=== PATIENT | female | born 1995 | race Caucasian/White ===

== ENCOUNTER 2016-08-26 18:44 | Emergency (ER) | payer BC ==
[2016-08-26 19:59] VITALS: BP 129/70
--- NOTE | 2016-08-26 20:24 | UC ---
Throat Pain/Nasal [place] HPI - HPI Summary HPI Summary: fever and sore throat for 2 days - History of Current Complaint Chief Complaint: UCRespiratory Stated Complaint: SORE THROAT Time Seen by Provider: 08/26/16 20:21 Hx Obtained From: Patient Hx Last Menstrual Period: 07/15/16 ?: No Onset/Duration: Sudden Onset, Lasting Days Severity: Moderate Cough: Nonproductive Associated Signs & Symptoms: Positive: Dysphagia, Fever - Epiglottits Risk Factors Epiglottis Risk Factors: Negative - Allergies/Home Medications Allergies/Adverse Reactions: Allergies Allergy/AdvReac Type Severity Reaction Status Date / Time Amoxicillin Allergy Rash Verified 08/26/16 19:59 Sulfa Antibiotics Allergy Rash Verified 08/26/16 19:59 Home Medications: Home Medications GuaiFENesin DM* [Robitussin DM*] 10 ml PO Q4H PRN 08/26/16 [History Confirmed ] Ibuprofen TAB* [Motrin TAB* 800 MG] 800 mg PO TID 08/26/16 [History Confirmed ] Losartan TAB* [Cozaar TAB*] 50 mg PO QPM 08/26/16 [History Confirmed 08/26/16] Menthol (Mouth-Throat) [Cepacol Sore Throat] 10.6 mg MT ONCE 08/26/16 [History Confirmed 08/26/16] Norgestimate-Ethinyl Estradiol [Trinessa 0.18/0.215/0.25 mg-35 Mcg] 1 tab PO QPM 08/26/16 [History Confirmed 08/26/16] Propranolol TAB* [Inderal TAB*] 10 mg PO QPM 08/26/16 [History Confirmed ] buPROPion TAB* [Wellbutrin TAB*] 100 mg PO QPM 08/26/16 [History Confirmed 08/26] PMH/Surg Hx/FS Hx/Imm Hx Previously Healthy: Yes Cardiovascular History Of: Reports: Hypertension - Surgical History Surgical History: Yes Surgery Procedure, Year, and Place: gallbladder 12/2015 - Family History Known Family History: Negative: Cardiac Disease - Social History Alcohol Use: Rare Substance Use Type: None Smoking Status (MU): Never Smoked Tobacco Review of Systems Constitutional: Fever Skin: Negative Eyes: Negative ENT: Nasal Discharge Respiratory: Cough Cardiovascular: Negative Gastrointestinal: Negative Genitourinary: Negative Motor: Negative Neurovascular: Negative Musculoskeletal: Negative Neurological: Negative Psychological: Negative All Other Systems Reviewed And Are Negative: Yes Physical Exam Triage Information Reviewed: Yes Appearance: Ill-Appearing, Pain Distress, Obese Vital Signs: Initial Vital Signs Temp 100.4 F 08/26/16 19:52 Pulse 92 08/26/16 19:52 Resp 20 08/26/16 19:52 BP 129/70 08/26/16 19:52 Pulse Ox 100 08/26/16 19:52 Vital Signs Reviewed: Yes Eye Exam: Normal Eyes: Positive: Conjunctiva Clear ENT: Positive: Normal ENT inspection, Hearing grossly normal, Pharynx normal, TMs normal Dental Exam: Normal Neck exam: Normal Neck: Positive: Supple, Nontender, No Lymphadenopathy Respiratory Exam: Normal Respiratory: Positive: Chest non-tender, Lungs clear, Normal breath sounds Cardiovascular Exam: Normal Cardiovascular: Positive: RRR, No Murmur, Pulses Normal Abdominal Exam: Normal Abdomen Description: Positive: Nontender, No Organomegaly, Soft Bowel Sounds: Positive: Present Musculoskeletal Exam: Normal Musculoskeletal: Positive: Strength Intact, ROM Intact, No Edema Neurological Exam: Normal Neurological: Positive: Alert, Muscle Tone Normal Psychological Exam: Normal Skin Exam: Normal Throat Pain/Nasal Course/Dx - Course Course Of Treatment: hx obtained, exam performed, meds reviewed, rapid strep is positive, treated with keflex - Differential Dx/Diagnosis Differential Diagnosis/HQI/PQRI: Influenza, Laryngitis, Peritonsillar Abscess, Pharyngitis, Sinusitis Provider Diagnoses: strep pharyngitis Discharge - Discharge Plan Condition: Stable Disposition: HOME Prescriptions: Cephalexin CAP* [Keflex CAP*] 500 mg PO BID #20 cap Patient Education Materials: Strep Throat (ED) Referrals: Lucia Hsu MD [Primary Care Provider] - Additional Instructions: 1. take the medication as prescribed 2. Increase your fluid intake and get plenty of rest.
== END 2016-08-26 20:33 | disposition home or self-care (01) ==
LOC: UCCORT 18:44
DX: J02.0 Streptococcal pharyngitis (principal); Z88.1 Allergy status to other antibiotic agents; Z88.2 Allergy status to sulfonamides; I10 Essential (primary) hypertension; E66.9 Obesity, unspecified; Z90.49 Acquired absence of other specified parts of digestive tract
CPT/HCPCS: 87651; 99202; G0463

== ENCOUNTER 2018-05-09 15:05 | Emergency (ER) | payer BC ==
--- OUTSIDE RECORDS SUMMARY | 2018-05-09 16:29 | XMS REPORT | Continuity of Care Document ---
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 K/uL 2.1-8.0 Abs Lymphocytes 2.4 K/uL 0.8-5.5 Abs Monocytes 0.6 K/uL 0.1-1.0 Abs Eosinophils 0.2 K/uL 0.0-0.5 Abs Basophils 0.0 K/uL 0.0-0.3 Basic Metabolic Panel 12/12/2015 [facility] Glucose 97 mg /dL 74-106 (315)- - BUN 6 mg/dL Low 7-18 Creatinine 0.8 mg/dL 0.6-1.3 Glom Filtration Rate, Estimate >60 mL/min >60 If >60 mL/min >60 24 BUN/Creat 7.5 ratio Sodium 142 mmol/L 136-145 Potassium 3.6 mmol/L 3.5-5.1 Chloride 108 mmol/L High 98-107 Carbon Dioxide 27 mmol/L 21-32 Anion Gap 7 mEq/L Low 8-16 Calcium 8.4 mg/dL Low 8.5-10.1 Liver Function 12/12/2015 [facility] Total Protein 6.4 g/ dL 6.4-8.2 Tests (315)- - Albumin 3.0 g/dL Low 3.4-5.0 Globulin 3.4 g/dL 1.9-4.3 Alb/Glob 0.9 ratio Bilirubin,Total 0.7 mg/dL 0.2-1.0 Bilirubin,Direct 0.4 mg/dL High 0.0-0.2 Bilirubin,Indirect 0.3 mg/dL 0.0-0.9 Sgot/Ast 78 U/L High 15-37 SGPT/Alt 194 U/L High 12-78 Alkaline Phosphatase 88 U/L 45-117 Laboratory test 12/12/2015 [facility] Pathology See Note 25 finding (315)- - Specimen CBC 12/10/2015 [facility] White Blood 8.0 K/uL 3.1- 10. (315)- - Count 7 Red Blood Count 4.03 M/uL 3.90-5.40 Hemoglobin 11.3 gm/dL Low 11.6-15.8 Hematocrit 35.0 % Low 36.0-46.1 Mean Cell Volume 86.8 fl 80.9-99.0 Mean Corpuscular HGB 28.0 pg 25.9-32.7 Mean Corpuscular HGB Conc 32.3 g/dL 30.8-34.3 Platelet Count 276 K/uL 155-360 Red Cell Distri Width %CV 13.9 % 11.7-14.4 Mean Platelet Volume 9.2 fL 8.9-12.4 Liver Function 12/10/2015 [facility] Total Protein 6.2 g/ dL Low 6.4-8.2 Tests (315)- - Albumin 2.8 g/dL Low 3.4-5.0 Globulin 3.4 g/dL 1.9-4.3 Alb/Glob 0.8 ratio Bilirubin,Total 0.9 mg/dL 0.2-1.0 Bilirubin,Direct 0.5 mg/dL High 0.0-0.2 Bilirubin,Indirect 0.4 mg/dL 0.0-0.9 Sgot/Ast 133 U/L High 15-37 SGPT/Alt 226 U/L High 12-78 Alkaline Phosphatase 95 U/L 45-117 Basic Metabolic Panel 12/10/2015 [facility] Glucose 99 mg /dL 74-106 (315)- - BUN 7 mg/dL 7-18 Creatinine 0.8 mg/dL 0.6-1.3 Glom Filtration Rate, Estimate >60 mL/min >60 If >60 mL/min >60 26 BUN/Creat 8.7 ratio Sodium 141 mmol/L 136-145 Potassium 3.6 mmol/L 3.5-5.1 Chloride 109 mmol/L High 98-107 Carbon Dioxide 24 mmol/L 21-32 Anion Gap 8 mEq/L 8-16 Calcium 8.3 mg/dL Low 8.5-10.1 Comprehensive Metabolic 12/09/2015 [facility] Glucose 109 mg/dL High 74-106 Panel (315)- - BUN 8 mg/dL 7-18 Creatinine 0.8 mg/dL 0.6-1.3 Glom Filtration Rate, Estimate >60 mL/min >60 If >60 mL/min >60 27 BUN/Creat 10.0 ratio Sodium 139 mmol/L 136-145 Potassium 4.0 mmol/L 3.5-5.1 Chloride 108 mmol/L High 98-107 Carbon Dioxide 23 mmol/L 21-32 Anion Gap 8 mEq/L 8-16 Calcium 8.2 mg/dL Low 8.5-10.1 Total Protein 6.3 g/dL Low 6.4-8.2 Albumin 2.9 g/dL Low 3.4-5.0 Globulin 3.4 g/dL 1.9-4.3 Alb/Glob 0.9 ratio Bilirubin,Total 3.2 mg/dL High 0.2-1.0 Sgot/Ast 183 U/L High 15-37 SGPT/Alt 207 U/L High 12-78 Alkaline Phosphatase 96 U/L 45-117 CBC 12/09/2015 [facility] White Blood Count 6.3 K/uL 3.1-10.7 (315)- - Red Blood Count 4.21 M/uL 3.90-5.40 Hemoglobin 11.8 gm/dL 11.6-15.8 Hematocrit 36.4 % 36.0-46.1 Mean Cell Volume 86.5 fl 80.9-99.0 Mean Corpuscular HGB 28.0 pg 25.9-32.7 Mean Corpuscular HGB Conc 32.4 g/dL 30.8-34.3 Platelet Count 293 K/uL 155-360 Red Cell Distri Width %CV 13.9 % 11.7-14.4 Mean Platelet Volume 9.1 fL 8.9-12.4 Urine Screen 12/08/2015 [facility] Ua RFX Micro + See Note 28 (315)- - Culture II Urinalysis With 12/08/2015 [facility] Urine Color YELLOW Yellow Microscopic (315)- - Urine Clarity CLEAR Clear Urine Glucose - Dipstick NEGATIVE mg/dL Negative Urine Bilirubin - Dipstick MODERATE High Negative Urine Ketone NEGATIVE mg/dL Negative Urine Specific [place] 1.020 1.010-1.030 Urine Blood NEGATIVE Negative Urine PH 7.0 6.5-7.5 Urine Protein - Dipstick NEGATIVE mg/dL Negative Urine Urobilinogen - Dipstick 1.0 E.U./dL 0.2-1.0 Urine Nitrite - Dipstick NEGATIVE Negative Urine Leuk Esterase TRACE High Negative Urine RBC NONE SEEN rbc/hpf 0-2 Urine WBC 2-5 wbc/hpf 0-7 Urine Epithelial Cells FEW NONESEEN/lpf Urine Bacteria FEW NONESEEN Urine Amorph Sediment MODERATE Negative Comprehensive Metabolic 12/08/2015 [facility] Glucose 105 mg/dL 74-106 Panel (315)- - BUN 11 mg/dL 7-18 Creatinine 0.9 mg/dL 0.6-1.3 Glom Filtration Rate, Estimate >60 mL/min >60 If >60 mL/min >60 29 BUN/Creat 12.2 ratio Sodium 139 mmol/L 136-145 Potassium 3.7 mmol/L 3.5-5.1 Chloride 105 mmol/L 98-107 Carbon Dioxide 25 mmol/L 21-32 Anion Gap 9 mEq/L 8-16 Calcium 9.4 mg/dL 8.5-10.1 Total Protein 7.3 g/dL 6.4-8.2 Albumin 3.2 g/dL Low 3.4-5.0 Globulin 4.1 g/dL 1.9-4.3 Alb/Glob 0.8 ratio Bilirubin,Total 2.9 mg/dL High 0.2-1.0 Sgot/Ast 138 U/L High 15-37 SGPT/Alt 149 U/L High 12-78 Alkaline Phosphatase 95 U/L 45-117 Laboratory test 12/08/2015 [facility] Lipase 1174 U/L High 73-393 30 finding (315)- - HCG,Serum (Qualitative) NEGATIVE (Negative) 31 CBC W/Automated Diff 12/08/2015 [facility] White Blood 7.9 K/uL 3.1-10.7 (315)- - Count Red Blood Count 4.66 M/uL 3.90-5.40 Hemoglobin 12.9 gm/dL 11.6-15.8 Hematocrit 39.3 % 36.0-46.1 Mean Cell Volume 84.3 fl 80.9-99.0 Mean Corpuscular HGB 27.7 pg 25.9-32.7 Mean Corpuscular HGB Conc 32.8 g/dL 30.8-34.3 Platelet Count 313 K/uL 155-360 Red Cell Distri Width SD 41.1 fl 3-47 Red Cell Distri Width %CV 13.7 % 11.7-14.4 Mean Platelet Volume 9.0 fL 8.9-12.4 Neut% 62.6 % 40.4-72.8 Lymph % 30.5 % 17.0-46.1 [place] % 6.0 % 4.3-13.2 Eo% 0.6 % 0.0-6.6 Bas% 0.3 % 0.0-1.1 Neut# 4.92 K/uL 1.8-7.0 Lymph # 2.40 K/uL 1.8-7.0 [place] # 0.47 K/uL 0.3-0.9 Eos # 0.05 K/uL 0.0-0.5 Baso # 0.02 K/uL 0.0-0.1 Urine HCG 12/08/2015 [facility] Urine HCG NEGATIVE Negative 32 (Qualitative) (315)- - (Qualitative) Glycohemoglobin A1c 09/13/2015 [facility] Glycohemoglobin 5.7 % 4.2-6.3 33 (315)- - (A1c) eAG 117 mg/dL Laboratory test 09/13/2015 [facility] Thyroid Stim 0.63 uIU/mL 0.30-4.20 finding (315)- - Hormone CMP, Comp 09/13/2015 [facility] Glucose 92 mg/dL 74- 106 Metabolic Panel (315)- - BUN 11 mg/dL 7-18 Creatinine 0.8 mg/dL 0.6-1.3 Glom Filtration Rate, Estimate >60 mL/min >60 If >60 mL/min >60 34 BUN/Creat 13.7 ratio Sodium 140 mmol/L 136-145 Potassium 4.2 mmol/L 3.5-5.1 Chloride 105 mmol/L 98-107 Carbon Dioxide 26 mmol/L 21-32 Anion Gap 9 mEq/L 8-16 Calcium 8.7 mg/dL 8.5-10.1 Total Protein 7.1 g/dL 6.4-8.2 Albumin 3.1 g/dL Low 3.4-5.0 Globulin 4.0 g/dL 1.9-4.3 Alb/Glob 0.8 ratio Bilirubin,Total 0.5 mg/dL 0.2-1.0 Sgot/Ast 12 U/L Low 15-37 35 SGPT/Alt 25 U/L 12-78 Alkaline Phosphatase 60 U/L 45-117 CBC 09/13/2015 [facility] White Blood Count 8.8 K/uL 3.1-10.7 (315)- - Red Blood Count 4.53 M/uL 3.90-5.40 Hemoglobin 12.2 gm/dL 11.6-15.8 Hematocrit 38.6 % 36.0-46.1 Mean Cell Volume 85.2 fl 80.9-99.0 Mean Corpuscular HGB 26.9 pg 25.9-32.7 Mean Corpuscular HGB Conc 31.6 g/dL 30.8-34.3 Platelet Count 342 K/uL 155-360 Red Cell Distri Width %CV 13.5 % 11.7-14.4 Mean Platelet Volume 9.2 fL 8.9-12.4 BMP (Basic) 06/14/2015 [facility] Glucose 93 mg/dL 74- 106 (315)- - BUN 14 mg/dL 7-18 Creatinine 0.6 mg/dL 0.6-1.3 Glom Filtration Rate, Estimate >60 mL/min >60 If >60 mL/min >60 36 BUN/Creat 23.3 ratio Sodium 140 mmol/L 136-145 Potassium 4.3 mmol/L 3.5-5.1 Chloride 105 mmol/L 98-107 Carbon Dioxide 27 mmol/L 21-32 Anion Gap 8 mEq/L 8-16 Calcium 8.8 mg/dL 8.5-10.1 Glycohemoglobin A1c 06/14/2015 [facility] Glycohemoglobin 5.8 % 4.2-6.3 37 (315)- - (A1c) eAG 120 mg/dL Laboratory test 06/14/2015 [facility] Thyroid Stim 1.13 uIU/mL 0.36-3.74 finding (315)- - Hormone Basic Metabolic 10/02/2014 [facility] Glucose 96 mg/dL 74-106 Panel (315)- - BUN 11 mg/dL 7-18 Creatinine 0.7 mg/dL 0.6-1.3 Glom Filtration Rate, Estimate >60 mL/min >60 If >60 mL/min >60 38 BUN/Creat 15.7 ratio Sodium 139 mmol/L 136-145 Potassium 4.4 mmol/L 3.5-5.1 Chloride 107 mmol/L 98-107 Carbon Dioxide 23 mmol/L 21-32 Anion Gap 9 mEq/L 8-16 Calcium 8.8 mg/dL 8.5-10.1 Laboratory test 10/02/2014 [facility] Thyroid Stim 1.97 0.36-3.74 finding (315)- - Hormone uIU/mL Glycohemoglobin A1c 10/02/2014 [facility] Glycohemoglobin 5.6 % 4.2-6.3 39 (315)- - (A1c) eAG 114 mg/dL CBC 10/02/2014 [facility] White Blood Count 6.4 K/uL 3.1-10.7 (315)- - Red Blood Count 4.11 M/uL 3.90-5.40 Hemoglobin 11.2 gm/dL Low 11.6-15.8 Hematocrit 35.2 % Low 36.0-46.1 Mean Cell Volume 85.6 fl 80.9-99.0 Mean Corpuscular HGB 27.3 pg 25.9-32.7 Mean Corpuscular HGB Conc 31.8 g/dL 30.8-34.3 Platelet Count 290 K/uL 155-360 Red Cell Distri Width %CV 14.2 % 11.7-14.4 Mean Platelet Volume 9.4 fL 8.9-12.4 Laboratory test finding 10/16/2013 N2N/CCD Import % A1c 5.5 % 4.1-6.5 % Baso. 0.9 % 0.0-2.0 % Eos. 1.3 % 0.0-4.0 % Lymph 36 % 20-44 % [place] 6.6 % 2.0-10.0 % [place] 56 % 50-70 Absolute Baso. 0.1 K/ul 0.0-0.3 Absolute Eos. 0.1 K/ul 0.0-0.5 Absolute Lymph. 2.9 K/ul 0.8-4.8 Absolute [place]. 0.5 K/ul 0.1-1.0 Absolute [place]. 4.50 K/ul 2.05-7.63 BUN 17.0 mg/dL 7.0-18.0 BUN/Creat Ratio 21.3 ratio High 12.0-20.0 Calcium 9.9 mg/dL 8.7-10.5 Chloride 107.0 mmol/L 98.0-107.0 Co2 25.0 mmol/L 22.0-30.0 Creatinine-Serum 0.8 mg/dL 0.7-1.2 Glucose 95.0 mg/dL 75.0-110.0 HCT 38.5 % 37.0-51.0 HGB 12.7 Gm/dl 12.0-16.0 MCH 28.1 pg 26.0-32.0 MCHC 33.0 g/dL 31.0-36.0 MCV 85.0 Fl 80.0-97.0 MPV 5.8 fL Low 6.0-10.0 PLT 378 K/ul 140-440 Potasium 4.5 mmol/L 3.6-5.0 RBC 4.5 M/ul 4.2-6.3 RDW 13.0 % 11.5-14.5 Sodium 140.0 mmil/L 137.0-145.0 TSH 1.31 uIU/ml 0.50-6.00 Vitamin B12 409.0 pg/mL 200.0-900.0 Vitamin D 30.0 ng/mL 30.0-100.0 WBC 8.1 K/ul 4.1-10.9 eGFR 98.2 Laboratory test 07/03/2013 N2N/CCD Import Throat Culture See Note 40 finding Complete Laboratory test 01/22/2013 N2N/CCD Import % A1c 5.7 % 4.1-6.5 finding % Baso. 0.9 % 0.0-2.0 % Eos. 1.8 % 0.0-4.0 % Lymph 43 % 20-44 % [place] 5.9 % 2.0-10.0 % [place] 49 % Low 50-70 Absolute Baso. 0.1 K/ul 0.0-0.3 Absolute Eos. 0.2 K/ul 0.0-0.5 Absolute Lymph. 3.6 K/ul 0.8-4.8 Absolute [place]. 0.5 K/ul 0.1-1.0 Absolute [place]. 4.09 K/ul 2.05-7.63 BUN 13.0 mg/dL 7.0-18.0 BUN/Creat Ratio 16.3 ratio 12.0-20.0 Calcium 10.0 mg/dL 8.7-10.5 Chloride 106.0 mmol/L 98.0-107.0 Co2 24.0 mmol/L 22.0-30.0 Creatinine-Serum 0.8 mg/dL 0.7-1.2 Glucose 100.0 mg/dL 75.0-110.0 HCT 38.3 % 37.0-51.0 HGB 11.9 Gm/dl Low 12.0-16.0 MCH 27.1 pg 26.0-32.0 MCHC 31.0 g/dL 31.0-36.0 MCV 87.2 Fl 80.0-97.0 MPV 5.9 fL Low 6.0-10.0 PLT 404 K/ul 140-440 Potasium 4.0 mmol/L 3.6-5.0 RBC 4.4 M/ul 4.2-6.3 RDW 12.6 % 11.5-14.5 Sodium 140.0 mmil/L 137.0-145.0 TSH 1.58 uIU/ml 0.50-6.00 WBC 8.4 K/ul 4.1-10.9 eGFR 99.3 Hepatic Function Panel LFT 01/22/2013 N2N/CCD Import Albumin 4.4 g/dL 3.5-5.0 Alk. Phos. 76.0 U/L 30.0-126.0 Alt 21.0 U/L 9.0-52.0 Ast 18.0 U/L 14.0-36.0 Total Bilirubin 0.3 mg/dL 0.2-1.3 Total Protein 7.0 g/dL 6.3-8.2 Laboratory test finding 12/08/2012 N2N/CCD Import Anion Gap 14 mEq/L 8- 16 BUN 15 mg/dL 5-23 BUN/Creat 16.6 ratio Calcium 8.8 mg/dL 8.5-10.1 Carbon Dioxide 23 mEq/L 18-29 Chloride 106 mmol/L 98-107 Creatinine 0.9 mg/dL 0.5-1.4 Glom Filtration Rate, Estimate >60 mL/min >60 Glucose 89 mg/dL 76-115 Glycohemoglobin (A1c) 6.0 % 4.8-6.0 41 If >60 mL/min >60 42 Potassium 4.0 mmol/L 3.5-5.1 Sodium 139 mmol/L 136-145 eAG 126 mg/dL Laboratory test finding 05/06/2012 N2N/CCD Import Anion Gap 10 mEq/L 8- 16 BUN 14 mg/dL 5-23 BUN/Creat 17.5 ratio Calcium 9.0 mg/dL 8.5-10.1 Carbon Dioxide 26 mEq/L 18-29 Chloride 104 mmol/L 98-107 Creatinine 0.8 mg/dL 0.5-1.4 Glom Filtration Rate, Estimate >60 mL/min >60 Glucose 107 mg/dL 76-115 Glycohemoglobin (A1c) 5.9 % 4.8-6.0 43 If >60 mL/min >60 44 Potassium 4.0 mmol/L 3.5-5.1 Sodium 136 mmol/L 136-145 eAG 123 mg/dL Laboratory test finding 12/14/2011 N2N/CCD Import Alb/Glob 1.2 ratio Albumin 4.0 g/dL 3.5-5.0 Alkaline Phosphatase 77 U/L 50-136 Anion Gap 14 mEq/L 8-16 Anti Strep O Screen Negative Iu/ml Negative BUN 11 mg/dL 5-23 BUN/Creat 15.7 ratio Bas% 0.2 % 0.0-1.1 Baso # 0.02 K/uL 0.0-0.1 Bilirubin,Total 0.4 mg/dL 0.2-1.2 Calcium 9.5 mg/dL 8.5-10.1 Carbon Dioxide 27 mEq/L 18-29 Chloride 103 mmol/L 98-107 Creatinine 0.7 mg/dL 0.5-1.4 Ebv AB Vca,Igg <0.2 0.0-0.8 45 Ebv AB Vca,Igm <0.2 0.0-0.8 46 Ebv Early Antigen AB, IgG <0.2 0.0-0.8 47 Ebv Interpretation See Note 48 Ebv Nuclear Antigen AB, Igg <0.2 0.0-0.8 49 Eo% 0.9 % 0.0-6.6 Eos # 0.09 K/uL 0.0-0.5 Globulin 3.4 g/dL 1.9-4.3 Glom Filtration Rate, Estimate >60 mL/min Glucose 121 mg/dL High 76-115 Hematocrit 40.1 % 36.0-46.0 Hemoglobin 13.4 gm/dL 12.0-16.0 If >60 mL/min Lymph # 2.98 K/uL 0.8-3.4 Lymph % 29.5 % 17.0-46.1 Mean Cell Volume 82.0 fl 77.0-95.0 Mean Corpuscular HGB 27.4 pg 25.0-30.0 Mean Corpuscular HGB Conc 33.4 g/dL 30.8-34.3 Mean Platelet Volume 9.6 fL 8.9-12.4 [place] # 0.54 K/uL 0.0-0.6 [place] % 5.4 % 4.3-13.2 Monoscreen (Heterophile) Negative Negative 50 Neut# 6.46 K/uL 1.0-7.0 Neut% 64.0 % 28.0-68.0 Platelet Count 411 K/uL High 155-360 Potassium 3.9 mmol/L 3.5-5.1 Red Blood Count 4.89 M/uL 4.10-5.10 Red Cell Distri Width %CV 13.8 % 11.7-14.4 Red Cell Distri Width SD 40.1 fl 3-47 SGPT/Alt 29 U/L Low 30-65 Sedimentation Rate 14 mm/hr 0-20 Sgot/Ast 14 U/L Low 16-40 Sodium 140 mmol/L 136-145 Thyroid Stim Hormone 1.08 uIU/mL 0.49-4.67 Total Protein 7.4 g/dL 6.3-8.0 White Blood Count 10.1 K/uL 4.5-13.5 Laboratory test finding 12/03/2011 N2N/CCD Import Anion Gap 13 mEq/L 8- 16 BUN 13 mg/dL 5-23 BUN/Creat 18.5 ratio Calcium 9.2 mg/dL 8.5-10.1 Carbon Dioxide 25 mEq/L 18-29 Chloride 105 mmol/L 98-107 Creatinine 0.7 mg/dL 0.5-1.4 Glom Filtration Rate, Estimate >60 mL/min Glucose 106 mg/dL 76-115 Glycohemoglobin (A1c) 6.1 % High 4.8-6.0 51 If >60 mL/min Potassium 4.2 mmol/L 3.5-5.1 Sodium 139 mmol/L 136-145 eAG 128 mg/dL Laboratory test finding 06/19/2011 N2N/CCD Import Anion Gap 12 mEq/L 8- 16 BUN 13 mg/dL 5-23 BUN/Creat 16.2 ratio Calcium 9.2 mg/dL 8.5-10.1 Carbon Dioxide 25 mEq/L 18-29 Chloride 107 mmol/L 98-107 Creatinine 0.8 mg/dL 0.5-1.4 Glom Filtration Rate, Estimate >60 mL/min Glucose 96 mg/dL 76-115 Glycohemoglobin (A1c) 5.7 % 4.8-6.0 52 If >60 mL/min Potassium 4.2 mmol/L 3.5-5.1 Sodium 140 mmol/L 136-145 eAG 117 mg/dL LDL Cholesterol Profile 03/06/2011 N2N/CCD Import Cholesterol 159 mg/dL 120-200 HDL Cholesterol 28 mg/dL Low 29-83 LDL-Cholesterol 101 mg/dL 62-185 Triglycerides 150 mg/dL 16-231 Laboratory test finding 03/06/2011 N2N/CCD Import Anion Gap 11 mEq/L 8- 16 BUN 11 mg/dL 5-23 BUN/Creat 12.2 ratio Calcium 9.7 mg/dL 8.5-10.1 Carbon Dioxide 25 mEq/L 18-29 Chloride 107 mmol/L 98-107 Cortisol,Am 11.47 g/dL 4.30-22.40 Creatinine 0.9 mg/dL 0.5-1.4 Glom Filtration Rate, Estimate >60 mL/min Glucose 89 mg/dL 76-115 Glycohemoglobin (A1c) 5.7 % 4.8-6.0 53 If >60 mL/min Potassium 4.4 mmol/L 3.5-5.1 SGPT/Alt 22 U/L Low 30-65 Sgot/Ast 13 U/L Low 16-40 Sodium 139 mmol/L 136-145 Thyroid Stim Hormone 1.34 uIU/mL 0.49-4.67 eAG 117 mg/dL Laboratory test finding 12/21/2010 N2N/CCD Import Anion Gap 19 mmol/L 10 -20 54 BUN 12 mg/dL 7-18 BUN/CR Ratio 17.5 Ratio 12-20 Calcium 9.7 mg/dL 8.7-10.5 Carbon Dioxide 26 mmol/L 22-30 Chloride 104 mmol/L 98-107 Creatinine, Serum 0.7 mg/dL 0.7-1.2 Glucose 96 mg/dL 65-105 Hemoglobin A1c 5.8 % 4.1-6.5 Potassium 4.7 mmol/L 3.6-5.0 Sodium 143 mmol/L 137-145 Laboratory test finding 07/23/2010 N2N/CCD Import Anion Gap 10 mEq/L 8- 16 BUN 13 mg/dL 5-23 BUN/Creat 16.2 Calcium 9.0 mg/dL 8.5-10.1 Carbon Dioxide 28 mEq/L 21-32 Chloride 103 mEq/L 98-107 Creatinine 0.8 mg/dL 0.5-1.4 Glom Filtration Rate, Estimate >60 mL/min Glucose 81 mg/dL 76-115 Glycohemoglobin (A1c) 5.6 % 4.8-6.0 55 If >60 mL/min Potassium 4.3 mEq/L 3.5-5.1 Sodium 137 mEq/L 136-145 eAG 114 mg/dL Laboratory test finding 03/14/2010 N2N/CCD Import Anion Gap 13 mEq/L 8- 16 BUN 16 mg/dL 5-23 BUN/Creat 20.0 Calcium 8.7 mg/dL 8.5-10.1 Carbon Dioxide 24 mEq/L 21-32 Chloride 106 mEq/L 98-107 Creatinine 0.8 mg/dL 0.5-1.4 FSH 3.6 mIU/mL 56 Glom Filtration Rate, Estimate >60 mL/min Glucose 95 mg/dL 76-115 Glycohemoglobin A1c 5.6 % 4.8-6.0 57 If >60 mL/min Insulin 41.9 uIU/mL High 0.0-24.9 58 Luteinizing Hormone 3.1 mIU/mL 59 Potassium 4.0 mEq/L 3.5-5.1 Sodium 139 mEq/L 136-145 Laboratory test finding 09/13/2009 N2N/CCD Import Alb/Glob 1.0 Albumin 3.7 g/dL 3.5-5.0 Alkaline Phosphatase 126 U/L 50-136 Anion Gap 11 mEq/L 8-16 BUN 12 mg/dL 5-23 BUN/Creat 17.1 Bas% 0.3 % 0.0-1.1 Baso # 0.0 K/uL 0.0-0.1 Bilirubin,Total 0.6 mg/dL 0.2-1.2 Calcium 9.1 mg/dL 8.5-10.1 Carbon Dioxide 26 mEq/L 21-32 Chloride 105 mEq/L 98-107 Cortisol,Random 8.7 NotEstab.ug/ Creatinine 0.7 mg/dL 0.5-1.4 Eo% 1.1 % 0.0-6.6 Eos # 0.1 K/uL 0.0-0.5 Globulin 3.8 gm/dL 1.9-4.3 Glom Filtration Rate, Estimate >60 mL/min Glucose 88 mg/dL 76-115 Hematocrit 38.1 % 36.0-46.0 Hemoglobin 12.4 gm/dL 12.0-16.0 If >60 mL/min Lymph # 2.8 K/uL 0.8-3.4 Lymph % 43.5 % 17.0-46.1 Mean Cell Volume 83.2 fl 77.0-95.0 Mean Corpuscular HGB 27.1 pg 25.0-30.0 Mean Corpuscular HGB Conc 32.5 g/dL 30.8-34.3 Mean Platelet Volume 9.0 fL 8.9-12.4 [place] # 0.4 K/uL 0.0-0.6 [place] % 6.1 % 4.3-13.2 Neut# 3.1 K/uL 1.0-7.0 Neut% 49.0 % 28.0-68.0 Platelet Count 372 K/uL High 155-360 Potassium 4.5 mEq/L 3.5-5.1 Red Blood Count 4.58 M/uL 4.10-5.10 Red Cell Distri Width %CV 13.1 % 11.7-14.4 Red Cell Distri Width SD 39 fl 3-47 SGPT/Alt 33 U/L 30-65 Sgot/Ast 17 U/L 16-40 Sodium 137 mEq/L 136-145 Thyroid Stim Hormone 1.49 uIU/mL 0.49-4.67 Total Protein 7.5 g/dL 6.3-8.0 White Blood Count 6.4 K/uL 4.5-13.5 LDL Cholesterol Profile 09/13/2009 N2N/CCD Import Cholesterol 154 mg/dL 120-200 HDL Cholesterol 35 mg/dL 32-96 LDL-Cholesterol 95 mg/dL 62-185 Triglycerides 122 mg/dL 0-210 Laboratory test 07/09/2008 N2N/CCD Import Culture Throat Normal Throat 60 finding FL <See Note> Laboratory test 12/19/2007 N2N/CCD Import Anion Gap 14 mEq/L 8-16 finding BUN 13 mg/dL 5-23 BUN/Creat 21.6 Bas% 0.4 % 0.0-1.1 Baso # 0.0 K/uL 0.0-0.1 Calcium 9.8 mg/dL 8.5-10.1 Carbon Dioxide 26 mEq/L 21-32 Chloride 102 mEq/L 98-107 Creatinine 0.6 mg/dL 0.5-1.4 Eo% 1.1 % 0.0-6.6 Eos # 0.1 K/uL 0.0-0.5 Glucose 106 mg/dL 76-115 Hematocrit 39.6 % 36.0-46.0 Hemoglobin 13.1 gm/dL 12.0-16.0 Lymph # 3.2 K/uL 0.8-3.4 Lymph % 37.9 % 17.0-46.1 Mean Cell Volume 82.3 fl 77.0-95.0 Mean Corpuscular HGB 27.2 pg 25.0-30.0 Mean Corpuscular HGB Conc 33.1 g/dL 30.8-34.3 Mean Platelet Volume 8.9 fL 8.9-12.4 [place] # 0.7 K/uL High 0.0-0.6 [place] % 7.7 % 4.3-13.2 Neut# 4.5 K/uL 1.0-7.0 Neut% 52.9 % 28.0-68.0 Platelet Count 372 K/uL High 155-360 Potassium 4.0 mEq/L 3.5-5.1 Red Blood Count 4.81 M/uL 4.10-5.10 Red Cell Distri Width %CV 13.2 % 11.7-14.4 Red Cell Distri Width SD 39 fl 3-47 Sodium 138 mEq/L 136-145 Thyroid Stim Hormone 1.61 uIU/mL 0.49-4.67 White Blood Count 8.6 K/uL 4.5-13.5 Laboratory test finding 01/06/2007 N2N/CCD Import A/G Ratio 1.6 1.0-2.2 Albumin 4.4 g/dL 3.5-5.0 Alkaline Phosphatase 269 U/L High 38-126 Alt 37 U/L 9-52 Ast 27 U/L 14-36 BUN 14 mg/dL 7-18 BUN/CR Ratio 19.5 Ratio 12-20 Calcium 10.0 mg/dL 8.7-10.5 Carbon Dioxide 24 mmol/L 22-30 Chloride 105 mmol/L 98-107 Creatinine, Serum 0.7 mg/dL 0.7-1.2 Globulin 2.8 g/dL 2.7-4.3 Glucose 84 mg/dL 65-105 Potassium 4.3 mmol/L 3.6-5.0 Sodium 140 mmol/L 137-145 TSH 1.617 uIU/ml 0.50-6.00 Total Bilirubin 0.1 mg/dL Low 0.2-1.3 Total Protein 7.2 g/dL 6.3-8.2 Bas% 0.5 % 0.1-1.0 Baso # 0.1 K/uL 0.1-0.2 Cortisol,Random 14.5 g/dL 2.4-22.9 61 Eo% 0.8 % 0.0-5.0 Eos # 0.1 K/uL 0.0-0.5 Hematocrit 38.4 % 36.0-46.0 Hemoglobin 13.5 gm/dL 12.0-16.0 Ty# 0.2 0.0-1.5 Ty% 1.7 % 0.0-4.0 Lymph # 4.0 K/uL 1.2-4.0 Lymph % 36.6 % 17.0-56.0 Mean Cell Volume 83.0 fL 77.0-95.0 Mean Corpuscular HGB 29.2 pg 25.0-30.0 Mean Corpuscular HGB Conc 35.1 g/dL 31.7-36.0 Mean Platelet Volume 6.8 fl 6.6-10.6 [place] # 0.5 K/uL 0.0-0.6 [place] % 4.9 % 0.0-10.0 Neut# 6.0 K/uL 1.8-7.0 Neut% 55.5 % 28.0-68.0 Platelet Count 360 K/uL 150-400 Red Blood Count 4.63 M/uL 4.10-5.10 Red Cell Distri Width %CV 12.8 % 11.6-15.8 White Blood Count 10.8 K/uL 4.5-13.5 Laboratory test finding 06/11/2005 N2N/CCD Import Anion Gap 10 mEq/L 8- 16 BUN 18 mg/dL 5-23 BUN/Creat 30.0 Calcium 9.3 mg/dL 8.5-10.1 Carbon Dioxide 28 mEq/L 21-32 Chloride 107 mEq/L 98-107 Creatinine 0.6 mg/dL 0.5-1.4 Glucose 79 mg/dL 76-115 Hematocrit 39.4 % 35.0-45.0 Hemoglobin 13.8 gm/dL 11.5-15.5 Mean Cell Volume 82.5 fL 77.0-95.0 Mean Corpuscular HGB 28.9 pg 25.0-33.0 Mean Corpuscular HGB Conc 35.0 g/dL 31.7-36.0 Mean Platelet Volume 7.4 fl 6.6-10.6 Platelet Count 411 K/uL High 150-400 Potassium 4.3 mEq/L 3.5-5.1 Red Blood Count 4.77 M/uL 4.00-5.20 Red Cell Distri Width %CV 13.3 % 11.6-15.8 Sodium 141 mEq/L 136-145 Thyroid Stim Hormone 0.94 uIU/mL 0.49-4.67 White Blood Count 8.3 K/uL 4.5-13.5 1 R73.01 I10 2 Elevated levels of HbA1c suggest the need for more aggressive treatment of glycemia. The [place] [employer] recommends that a primary goal of therapy should be a HbA1c of <7% and that physicians should re-evaluate the treatment regimen in patients with HbA1c values consistently >8%. 3 Note: Persistent reduction for 3 months or more in an eGFR <60 mL/min/1.73 m2 defines CKD. Patients with eGFR values >/=60 mL/min/1.73 m2 may also have CKD if evidence of persistent proteinuria is present. The original MDRD equation for estimated GFR is not valid for patients less than 18 years of age. Additional information may be found at [email or web address]. 4 Reference Guidelines*: Desirable: ........... < 200 mg/dL Borderline High: ..... 200-239 mg/dL High: ................ >=240 mg/dL * The National Cholesterol Education Program (NCEP) 5 Reference Guidelines*: Normal: ............. < 150 mg/dL Borderline High: .... 150-199 mg/dL High: ............... 200-499 mg/dL Very High: .......... > 500 mg/dL * Source: National Cholesterol Education Program (NCEP) 6 Reference Guidelines*: Low HDL: ..... < 40 mg/dL Normal: ..... 40-60 mg/dL Desirable: ... > 60 mg/dL *The National Cholesterol Education Program(NCEP) 7 Reference Guidelines*: Optimal:........... <100 mg/dL Near Optimal....... 100-129 mg/dL Borderline High.... 130-159 mg/dL High............... 160-189 mg/dL Very High.......... >=190 mg/dL * Source: National Cholesterol Education Program (NCEP) 8 SPECIMEN DESCRIPTION STOOL RESULT NEGATIVE FOR H. PYLORI ANTIGEN BY EIA REPORT STATUS FINAL 05/13/2017 Unless otherwise specified, testing performed by [facility] [address] [place] [address] 9 Updated reference range on new analyzer 10 Updated reference range on new analyzer 11 Concerning GFR Guidelines: Normal function or mild renal disease, if clinically at risk: >/=60 mL/min Moderately decreased: 30-59 Severely decreased: 15-29 Renal failure: <15 Glomerular Filtration Rate (GFR) is estimated based on the MDRD equation, which assumes a steady state for creatinine as recommended by the National Kidney Disease Education Program in conjunction with the National Institutes of Health and the National Kidney Foundation. Clinical conditions in which it may be necessary to measure GFR by using clearance methods include extremes of age and body size, severe malnutrition or obesity, diseases of skeletal muscle, paraplegia or quadriplegia, vegetarian diet, rapidly changing kidney function, and calculation of the dose of potentially toxic drugs that are excreted by the kidneys. 12 Concerning GFR Guidelines for Americans: Normal function or mild renal disease, if clinically at risk: >/=60 mL/min Moderately decreased: 30-59 Severely decreased: 15-29 Renal failure: <15 13 Updated reference range on new analyzer 14 I10,F32.0,R73.01 15 Note: Persistent reduction for 3 months or more in an eGFR <60 mL/min/1.73 m2 defines CKD. Patients with eGFR values >/=60 mL/min/1.73 m2 may also have CKD if evidence of persistent proteinuria is present. The original MDRD equation for estimated GFR is not valid for patients less than 18 years of age. Additional information may be found at [email or web address]. 16 Values below the stated reference ranges of AST and ALT can be seen in normal populations. Clinical correlation is suggested. 17 Elevated levels of HbA1c suggest the need for more aggressive treatment of glycemia. The [place] [employer] recommends that a primary goal of therapy should be a HbA1c of <7% and that physicians should re-evaluate the treatment regimen in patients with HbA1c values consistently >8%. 18 R73.01 19 Note: Persistent reduction for 3 months or more in an eGFR <60 mL/min/1.73 m2 defines CKD. Patients with eGFR values >/=60 mL/min/1.73 m2 may also have CKD if evidence of persistent proteinuria is present. The original MDRD equation for estimated GFR is not valid for patients less than 18 years of age. Additional information may be found at [email or web address]. 20 Elevated levels of HbA1c suggest the need for more aggressive treatment of glycemia. The [place] [employer] recommends that a primary goal of therapy should be a HbA1c of <7% and that physicians should re-evaluate the treatment regimen in patients with HbA1c values consistently >8%. 21 3 mos 22 Concerning GFR Guidelines: Normal function or mild renal disease, if clinically at risk: >/=60 mL/min Moderately decreased: 30-59 Severely decreased: 15-29 Renal failure: <15 Glomerular Filtration Rate (GFR) is estimated based on the MDRD equation, which assumes a steady state for creatinine as recommended by the National Kidney Disease Education Program in conjunction with the National Institutes of Health and the National Kidney Foundation. Clinical conditions in which it may be necessary to measure GFR by using clearance methods include extremes of age and body size, severe malnutrition or obesity, diseases of skeletal muscle, paraplegia or quadriplegia, vegetarian diet, rapidly changing kidney function, and calculation of the dose of potentially toxic drugs that are excreted by the kidneys. 23 Concerning GFR Guidelines for Americans: Normal function or mild renal disease, if clinically at risk: >/=60 mL/min Moderately decreased: 30-59 Severely decreased: 15-29 Renal failure: <15 24 Note: Persistent reduction for 3 months or more in an eGFR <60 mL/min/1.73 m2 defines CKD. Patients with eGFR values >/=60 mL/min/1.73 m2 may also have CKD if evidence of persistent proteinuria is present. The original MDRD equation for estimated GFR is not valid for patients less than 18 years of age. Additional information may be found at [email or web address]. 25 GALLBLADDER Hard copy of report to be sent by mail Report may be viewed in Clinical Review, or in PCI under Medical Record Forms 26 Note: Persistent reduction for 3 months or more in an eGFR <60 mL/min/1.73 m2 defines CKD. Patients with eGFR values >/=60 mL/min/1.73 m2 may also have CKD if evidence of persistent proteinuria is present. The original MDRD equation for estimated GFR is not valid for patients less than 18 years of age. Additional information may be found at [email or web address]. 27 Note: Persistent reduction for 3 months or more in an eGFR <60 mL/min/1.73 m2 defines CKD. Patients with eGFR values >/=60 mL/min/1.73 m2 may also have CKD if evidence of persistent proteinuria is present. The original MDRD equation for estimated GFR is not valid for patients less than 18 years of age. Additional information may be found at [email or web address]. 28 12/08/15 [email or web address] Deleted by Reflex Group [facility] [place] 29 Note: Persistent reduction for 3 months or more in an eGFR <60 mL/min/1.73 m2 defines CKD. Patients with eGFR values >/=60 mL/min/1.73 m2 may also have CKD if evidence of persistent proteinuria is present. The original MDRD equation for estimated GFR is not valid for patients less than 18 years of age. Additional information may be found at [email or web address]. 30 CALLED LIPASE TO CARMEN D AT 2308 12/08/15 by [email or web address] 31 CALLED LIPASE TO CARMEN D AT 2308 12/08/15 by [email or web address] 32 FIRST MORNING SPECIMENS GENERALLY CONTAIN THE HIGHEST CONCENTRATION OF HCG AND ARE RECOMMENDED FOR EARLY DETECTION OF . 33 Elevated levels of HbA1c suggest the need for more aggressive treatment of glycemia. The [place] [employer] recommends that a primary goal of therapy should be a HbA1c of <7% and that physicians should re-evaluate the treatment regimen in patients with HbA1c values consistently >8%. 34 Note: Persistent reduction for 3 months or more in an eGFR <60 mL/min/1.73 m2 defines CKD. Patients with eGFR values >/=60 mL/min/1.73 m2 may also have CKD if evidence of persistent proteinuria is present. The original MDRD equation for estimated GFR is not valid for patients less than 18 years of age. Additional information may be found at www.[email or web address]. 35 Values below the stated reference ranges of AST and ALT can be seen in normal populations. Clinical correlation is suggested. 36 Note: Persistent reduction for 3 months or more in an eGFR <60 mL/min/1.73 m2 defines CKD. Patients with eGFR values >/=60 mL/min/1.73 m2 may also have CKD if evidence of persistent proteinuria is present. The original MDRD equation for estimated GFR is not valid for patients less than 18 years of age. Additional information may be found at www.[email or web address]. 37 Elevated levels of HbA1c suggest the need for more aggressive treatment of glycemia. The [place] [employer] recommends that a primary goal of therapy should be a HbA1c of <7% and that physicians should re-evaluate the treatment regimen in patients with HbA1c values consistently >8%. 38 Note: Persistent reduction for 3 months or more in an eGFR <60 mL/min/1.73 m2 defines CKD. Patients with eGFR values >/=60 mL/min/1.73 m2 may also have CKD if evidence of persistent proteinuria is present. The original MDRD equation for estimated GFR is not valid for patients less than 18 years of age. Additional information may be found at www.[email or web address]. 39 Elevated levels of HbA1c suggest the need for more aggressive treatment of glycemia. The [place] [employer] recommends that a primary goal of therapy should be a HbA1c of <7% and that physicians should re-evaluate the treatment regimen in patients with HbA1c values consistently >8%. 40 NORMAL THROAT FORTUNATO 41 A1c value between 5.7% and 6.4% is considered at increased risk for diabetes. A1c value greater than 6.5 % is considered essentially diagnostic for Type II diabetes. Current guidelines recommend a treatment goal of <7% for diabetic patients. This method will measure glycosylated hemoglobin variants, HbS, HbG , HbH, HbWayne, HbC, HbE, etc. Other hemoglobin- opathies may give incorrect results with this test. 42 Note: Persistent reduction for 3 months or more in an eGFR <60 mL/min/1.73 m2 defines CKD. Patients with eGFR values >/=60 mL/min/1.73 m2 may also have CKD if evidence of persistent proteinuria is present. The original MDRD equation for estimated GFR is not valid for patients less than 18 years of age. Additional information may be found at [email or web address]. 43 A1c value between 5.7% and 6.4% is considered at increased risk for diabetes. A1c value greater than 6.5 % is considered essentially diagnostic for Type II diabetes. Current guidelines recommend a treatment goal of <7% for diabetic patients. This method will measure glycosylated hemoglobin variants, HbS, HbG , HbH, HbWayne, HbC, HbE, etc. Other hemoglobin- opathies may give incorrect results with this test. 44 Note: Persistent reduction for 3 months or more in an eGFR <60 mL/min/1.73 m2 defines CKD. Patients with eGFR values >/=60 mL/min/1.73 m2 may also have CKD if evidence of persistent proteinuria is present. The original MDRD equation for estimated GFR is not valid for patients less than 18 years of age. Additional information may be found at [email or web address]. 45 Negative <0.9 Equivocal 0.9 - 1.0 Positive >1.0 46 Negative <0.9 Equivocal 0.9 - 1.0 Positive >1.0 47 Negative <0.9 Equivocal 0.9 - 1.0 Positive >1.0 48 EBV Interpretation Chart Interpretation VCA-IgM EA-IgG VCA-IgG NA-ABS Susceptible - - - - Acute Infection + +or- +or- - Convalescent Phase +or- +or- + + Chronic or Reactivated - + + +or- Old Infection - - +or- + + Antibody Present - Antibody Absent Performed at: - [facility] [address] [id number] Architectural Technician: Nilsa Rodriguez MD, Phone: [phone] 49 Negative <0.9 Equivocal 0.9 - 1.0 Positive >1.0 50 The sensitivity of Heterophile antibody testing is 80-90%. Elena Linares IgM testing offers higher sensitivity. Performed at: [facility] [id number] Architectural Technician: Nilsa Rodriguez MD, Phone: [phone] 51 A1c value between 5.7% and 6.4% is considered at increased risk for diabetes. A1c value greater than 6.5 % is considered essentially diagnostic for Type II diabetes. Current guidelines recommend a treatment goal of <7% for diabetic patients. This method will measure glycosylated hemoglobin variants, HbS, HbG , HbH, HbWayne, HbC, HbE, etc. Other hemoglobin- opathies may give incorrect results with this test. 52 A1c value between 5.7% and 6.4% is considered at increased risk for diabetes. A1c value greater than 6.5 % is considered essentially diagnostic for Type II diabetes. Current guidelines recommend a treatment goal of <7% for diabetic patients. This method will measure glycosylated hemoglobin variants, HbS, HbG , HbH, HbWayne, HbC, HbE, etc. Other hemoglobin- opathies may give incorrect results with this test. 53 A1c value between 5.7% and 6.4% is considered at increased risk for diabetes. A1c value greater than 6.5 % is considered essentially diagnostic for Type II diabetes. Current guidelines recommend a treatment goal of <7% for diabetic patients. This method will measure glycosylated hemoglobin variants, HbS, HbG , HbH, HbWayne, HbC, HbE, etc. Other hemoglobin- opathies may give incorrect results with this test. 54 3 mos [facility] 55 A1c value between 5.7% and 6.4% is considered at increased risk for diabetes. A1c value greater than 6.5 % is considered essentially diagnostic for Type II diabetes. Current guidelines recommend a treatment goal of <7% for diabetic patients. This method will measure glycosylated hemoglobin variants, HbS, HbG , HbH, HbWayne, HbC, HbE, etc. Other hemoglobin- opathies may give incorrect results with this test. 56 NORMALLY MENSTRUATING FEMALES: Follicular Phase:...............4-13 mIU/mL Mid-Cycle Peak:.................5-22 mIU/mL Luteal Phase:...................2 -13 mIU/mL Postmenopausal Female:........20-138 mIU/mL 57 Current guidelines recommend a treatment goal of <7% for diabetic patients. This method will measure glycosylated hemoglobin variants, HbS, HbG, HbH, HbWayne , HbC, HbE, etc. Other hemoglobin- opathies may give incorrect results with this test. Note change in expected values for healthy individuals 58 Performed at: - [facility] [id number] Architectural Technician: Aidan Hernandez MD, Phone: [phone] 59 NORMALLY MENSTRUATING FEMALES: Follicular Phase.............1-18 mIU/mL Mid -Cycle Peak.............24-105 mIU/mL Luteal Phase...............0.4-20 mIU/mL Postmenopausal .............15-62 mIU/mL 60 NORMAL THROAT FORTUNATO 61 Male Female 5 days old 0.6 - 19.8 0.6 - 19.8 2 mos-13 yrs. 2.4 - 22.9 2.4 - 22.9 14-15 yrs. 2.5 - 22.9 2.4 - 28.6 Adult (AM) 4.3 - 22.4 4.3 - 22.4 Adult (PM) 3.1 - 16.7 3.1 - 16.7 Procedures Date Code Description Status 10/11/2017 61962 Brief Emotional/Behav Assessment W/ Scoring Doc Per Completed Standard Inst 06/11/2015 63662 Measure Blood Oxygen Level Single Determination Completed 08/09/2014 61170 X-Ray Foot Complete Completed 08/09/2014 84367 X-Ray Ankle Complete Completed 01/15/2014 62588 Visual Screening Test Completed 01/15/2014 86015 Screening Hearing Test Completed 03/20/2012 67237 Measure Blood Oxygen Level Single Determination Completed 12/14/2011 61999 Measure Blood Oxygen Level Single Determination Completed 02/03/2010 40707 Measure Blood Oxygen Level Single Determination Completed 02/03/2010 35500 Electrocardiogram Complete Completed 01/06/2007 97902 Visual Screening Test Completed 01/06/2007 80427 Screening Hearing Test Completed Encounters Type Date Location Provider Dx Diagnosis Office Visit 10/11/2017 [facility] Lucia Hsu MD F32.0 Major depressive 3:30p disorder, single episode, mild R51 Headache R73.01 Impaired fasting glucose I10 Essential (primary) hypertension Z68.43 Body mass index (BMI) 50-59.9 , adult Office Visit 05/09/2017 9:45a [facility] Lucia Hsu MD R10.84 Generalized abdominal pain R19.7 Diarrhea, unspecified Office Visit 04/29/2017 4:15p [facility] Virginia Guzman PA R10.84 Generalized abdominal pain J01.00 Acute maxillary sinusitis, unspecified Office Visit 03/07/2017 1:15p [facility] Lucia Hsu MD R51 Headache F32.0 Major depressive disorder, single episode, mild R73.01 Impaired fasting glucose I10 Essential (primary) hypertension Office Visit 09/11/2016 9:30a [facility] Lucia Hsu MD R19.7 Diarrhea, unspecified Office Visit 08/23/2016 9:30a [facility] Lucia Hsu MD F32.0 Major depressive disorder, single episode, mild R51 Headache R73.01 Impaired fasting glucose I10 Essential (primary) hypertension Office Visit 06/04/2016 1:30p [facility] Cori Queen Z11.1 Encounter for screening for respiratory tuberculosis Office Visit 06/02/2016 11:00a [facility] Lucia Hsu MD Z11.1 Encounter for screening for respiratory tuberculosis Z00.00 Encntr for general adult medical exam w/o abnormal findings Office Visit 03/11/2016 9:00a [facility] Lucia Hsu MD R51 Headache F32.0 Major depressive disorder, single episode, mild R73.01 Impaired fasting glucose I10 Essential (primary) hypertension Z30.41 Encounter for surveillance of contraceptive pills Office Visit 12/18/2015 9:00a [facility] Lucia Hsu MD K85.1 Biliary acute pancreatitis R73.01 Impaired fasting glucose I10 Essential (primary) hypertension F32.0 Major depressive disorder, single episode, mild R51 Headache N76.0 Acute vaginitis Office Visit 09/16/2015 8:45a [facility] Lucia Hsu MD F32.0 Major depressive disorder, single episode, mild R73.01 Impaired fasting glucose I10 Essential (primary) hypertension Z68.42 Body mass index (BMI) 45.0-49.9, adult Z71.9 Counseling, unspecified R05 Cough Office Visit 08/19/2015 3:00p [facility] Radha Garner, R21 Rash and other COURTESY [employer]IVER nonspecific skin eruption Office Visit 06/24/2015 9:15a [facility] Lucia Hsu MD J01.90 Acute sinusitis, unspecified F32.0 Major depressive disorder, single episode, mild R73.01 Impaired fasting glucose I10 Essential (primary) hypertension M25.579 Pain in unspecified ankle and joints of unspecified foot Office Visit 06/11/2015 2:30p [facility] Radha Garner, J01.90 Acute sinusitis, COURT[employer]IVER unspecified Office Visit 04/15/2015 9:15a [facility] Lucia Hsu MD F32.0 Major depressive disorder, single episode, mild Office Visit 03/25/2015 9:30a [facility] Lucia Hsu MD R51 Headache F32.0 Major depressive disorder, single episode, mild R73.01 Impaired fasting glucose I10 Essential (primary) hypertension M25.579 Pain in unspecified ankle and joints of unspecified foot Z68.42 Body mass index (BMI) 45.0-49.9, adult Office Visit 02/06/2015 3:30p [facility] Bernice, Nurses Z11.1 Encounter for screening for respiratory tuberculosis Office Visit 02/04/2015 2:45p [facility] Lucia Hsu MD V74.1 Screening Examination Pulmonary Tuberculosis Z11.1 Encounter for screening for respiratory tuberculosis Z00.00 Encntr for general adult medical exam w/o abnormal findings Office Visit 10/04/2014 10:00a [facility] Lucia Hsu MD 719.47 Pain Joint Ankle & Foot 784.0 Headache 296.21 Depressive Disorder Major Single Episode Mild 790.21 Impaired Fasting Glucose 401.1 Hypertension Benign V85.42 BMI Body Mass Index 45.0-49.9, Adult Office Visit 08/09/2014 11:00a [facility] Lucia Hsu MD 719.47 Pain Joint Ankle & Foot Office Visit 06/24/2014 9:45a [facility] Lucia Hsu MD 784.0 Headache 296.21 Depressive Disorder Major Single Episode Mild 790.21 Impaired Fasting Glucose 401.1 Hypertension Benign 278.00 Obesity Unspec Plan of Treatment Future Appointment(s):10/12/2018 3:00 pm - Lucia Hsu MD at [facility]04/13/2018 - Lucia Hsu MDR51 HeadacheComments:not a problem at this time.F32.0 Major depressive disorder, single episode, mildComments:doing well on current medication - continue this. refill todayFollow up:6 mo f/u with nonfasting labs ulauaD47.01 Impaired fasting glucoseNew Labs:Basic (BMP), Scheduled: Hemoglobin A1c, Scheduled: 10/05/18Comments:in the prediabetic range and worsening - continue to work on healthy lifestyle - medication is not needed.I10 Essential (primary) hypertensionComments:at goal on current medication - continue thisZ68.43 Body mass index (BMI) 50-59.9, adultComments: the BMI is the ratio between height and weight . the goal BMI for your age is between 18 and 25. This means you are overweight. Recommend weight loss with healthy diet and regular exercise. 150 minof exercise weekly is the goal.
[2018-05-09 17:00] VITALS: BP 144/77
--- NOTE | 2018-05-09 17:49 | UC ---
Complaint Female HPI - HPI Summary HPI Summary: Pt presents with concern for sTD exposure. 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 - History Of Current Complaint Chief Complaint: UCGeneralIllness Stated Complaint: PERSONAL Time Seen by Provider: 05/09/18 16:59 Hx Obtained From: Patient Hx Last Menstrual Period: 04/27/18-on BCP ?: No Severity Currently: None Pain Intensity: 0 Character: Not Applicable Aggravating Factor(s): Nothing Alleviating Factor(s): Nothing Associated Signs And Symptoms: Positive: Negative - Risk Factors Ectopic Risk Factor: Negative Ovarian Torsion Risk Factor: Reproductive Age - Allergies/Home Medications Allergies/Adverse Reactions: Allergies Allergy/AdvReac Type Severity Reaction Status Date / Time amoxicillin Allergy Rash Verified 05/09/18 17:00 Sulfa (Sulfonamide Allergy Rash Verified 05/09/18 17:00 Antibiotics) PMH/Surg Hx/FS Hx/Imm Hx Previously Healthy: Yes - Surgical History Surgical History: Yes Surgery Procedure, Year, and Place: gallbladder 12/2015 - Family History Known Family History: Negative: Cardiac Disease - Social History Occupation: Employed Full-time Lives: With Family Alcohol Use: Occasionally Substance Use Type: None Smoking Status (MU): Never Smoked Tobacco Have You Smoked in the Last Year: No Review of Systems All Other Systems Reviewed And Are Negative: Yes Constitutional: Positive: Negative Skin: Positive: Negative Eyes: Positive: Negative ENT: Positive: Negative Respiratory: Positive: Negative Cardiovascular: Positive: Negative Gastrointestinal: Positive: Negative Genitourinary: Positive: Negative Motor: Positive: Negative Neurovascular: Positive: Negative Musculoskeletal: Positive: Negative Neurological: Positive: Negative Psychological: Positive: Negative Is Patient Immunocompromised?: No Physical Exam Triage Information Reviewed: Yes Appearance: Well-Appearing Vital Signs: Initial Vital Signs Temp 97.7 F 05/09/18 16:54 Pulse 78 05/09/18 16:54 Resp 18 05/09/18 16:54 BP 144/77 05/09/18 16:54 Pulse Ox 99 05/09/18 16:54 Vital Signs Reviewed: Yes Eye Exam: Normal ENT Exam: Normal Dental Exam: Normal Respiratory Exam: Normal Cardiovascular Exam: Normal Abdominal Exam: Normal Abdomen Description: Positive: Nontender Musculoskeletal Exam: Normal Neurological Exam: Normal Psychological Exam: Normal Skin Exam: Normal Complaint Female Dx - Differential Dx/Diagnosis Differential Diagnosis/HQI/PQRI: Sexually Transmitted Disease, Urinary Tract Infection Provider Diagnosis: Encounter for sexually transmitted disease counseling Discharge - Sign-Out/Discharge Documenting (check all that apply): Patient Departure All imaging exams completed and their final reports reviewed: No Studies - Discharge Plan Condition: Stable Disposition: HOME Patient Education Materials: Sexually Transmitted Diseases (ED), Safe Sex (ED) Referrals: Lucia Hsu MD [Primary Care Provider] - As Soon As Possible - Billing Disposition and Condition Condition: STABLE Disposition: Home
--- NOTE | 2018-05-11 16:13 | ED ---
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 1000mg of zithromax times one dose. Course/Dx - Diagnoses Provider Diagnoses: Encounter for sexually transmitted disease counseling Discharge - Sign-Out/Discharge Documenting (check all that apply): Patient Departure All imaging exams completed and their final reports reviewed: No Studies - Discharge Plan Condition: Stable Disposition: HOME Prescriptions: Azithromycin TAB* [Zithromax TAB (Z-DEBBY) 250 mg #6 tabs] 1,000 mg PO ONCE #4 tab Patient Education Materials: Sexually Transmitted Diseases (ED), Safe Sex (ED) Referrals: Lucia Hsu MD [Primary Care Provider] - As Soon As Possible - Billing Disposition and Condition Condition: STABLE Disposition: Home
== END 2018-05-09 17:50 | disposition home or self-care (01) ==
LOC: UCCORT 15:05
DX: Z20.2 Contact with and (suspected) exposure to infections with a predominantly sexual mode of transmission (principal); Z88.0 Allergy status to penicillin; Z88.1 Allergy status to other antibiotic agents
CPT/HCPCS: 87491; 87591; 99211; G0463

== ENCOUNTER 2019-02-11 10:58 | Emergency (ER) | payer BC ==
[2019-02-11 11:37] VITALS: BP 127/69
--- NOTE | 2019-02-11 12:03 | UC ---
Complaint Female HPI - HPI Summary HPI Summary: Pt presents with c/o urinary frequency X 1 day. - History Of Current Complaint Chief Complaint: UCGU Stated Complaint: UTI SYMPTOMS Time Seen by Provider: 02/11/19 11:47 Hx Obtained From: Patient Hx Last Menstrual Period: 01/30/19 ?: No Onset/Duration: Sudden Onset, Lasting Days, Still Present Timing: Constant Severity Initially: Mild Severity Currently: Mild Pain Intensity: 0 Aggravating Factor(s): Urination Alleviating Factor(s): Nothing Associated Signs And Symptoms: Positive: Back Pain - low back ache - Risk Factors Ectopic Risk Factor: Negative Ovarian Torsion Risk Factor: Reproductive Age - Allergies/Home Medications Allergies/Adverse Reactions: Allergies Allergy/AdvReac Type Severity Reaction Status Date / Time amoxicillin Allergy Rash Verified 02/11/19 11:37 Sulfa (Sulfonamide Allergy Rash Verified 02/11/19 11:37 Antibiotics) PMH/Surg Hx/FS Hx/Imm Hx Previously Healthy: Yes - Surgical History Surgical History: Yes Surgery Procedure, Year, and Place: cholycystectomy 12/2015 - Family History Known Family History: Negative: Cardiac Disease - Social History Occupation: Employed Full-time Lives: With Family Alcohol Use: Occasionally Substance Use Type: None Smoking Status (MU): Never Smoked Tobacco Have You Smoked in the Last Year: No Review of Systems All Other Systems Reviewed And Are Negative: Yes Constitutional: Positive: Negative Skin: Positive: Negative Eyes: Positive: Negative ENT: Positive: Negative Respiratory: Positive: Negative Cardiovascular: Positive: Negative Gastrointestinal: Positive: Abdominal Pain Genitourinary: Positive: Frequency, Urgency Motor: Positive: Negative Neurovascular: Positive: Negative Musculoskeletal: Positive: Negative Neurological: Positive: Negative Psychological: Positive: Negative Is Patient Immunocompromised?: No Physical Exam Triage Information Reviewed: Yes Appearance: Well-Appearing, Obese Vital Signs: Initial Vital Signs Temp 98.9 F 02/11/19 11:31 Pulse 75 02/11/19 11:31 Resp 18 02/11/19 11:31 BP 127/69 02/11/19 11:31 Pulse Ox 100 02/11/19 11:31 Vital Signs Reviewed: Yes Eye Exam: Normal ENT: Positive: Hearing grossly normal Dental Exam: Normal Neck exam: Normal Respiratory Exam: Normal Cardiovascular Exam: Normal Abdominal Exam: Normal Abdomen Description: Positive: Nontender Musculoskeletal Exam: Normal Neurological Exam: Normal Psychological Exam: Normal Skin Exam: Normal Complaint Female Dx - Differential Dx/Diagnosis Differential Diagnosis/HQI/PQRI: Sexually Transmitted Disease, Urinary Tract Infection Provider Diagnosis: UTI (urinary tract infection) Discharge ED - Sign-Out/Discharge Documenting (check all that apply): Patient Departure All imaging exams completed and their final reports reviewed: No Studies - Discharge Plan Condition: Stable Disposition: HOME Prescriptions: Nitrofurantoin Monohyd/M-Cryst [Macrobid 100 mg Capsule] 100 mg PO Q12H #10 cap Phenazopyridine TAB* [Pyridium 100 mg TAB*] 100 mg PO Q8H #3 tab Patient Education Materials: Urinary Tract Infection in Women (ED) Referrals: Lucia Hsu MD [Primary Care Provider] - If Needed - Billing Disposition and Condition Condition: STABLE Disposition: Home
--- NOTE | 2019-02-14 07:18 | UC ---
- Progress Note Progress Note: urine culture : + Proteus, Mirabilis resistance to Macrobid may stop Macrobid will call in cipro 500 mg bid x 5 days Course/Dx - Diagnoses Provider Diagnoses: UTI (urinary tract infection) Discharge ED - Sign-Out/Discharge Documenting (check all that apply): Patient Departure All imaging exams completed and their final reports reviewed: No Studies - Discharge Plan Condition: Stable Disposition: HOME Prescriptions: Ciprofloxacin TAB* [Cipro 500 MG TAB*] 500 mg PO BID #10 tab Nitrofurantoin Monohyd/M-Cryst [Macrobid 100 mg Capsule] 100 mg PO Q12H #10 cap Phenazopyridine TAB* [Pyridium 100 mg TAB*] 100 mg PO Q8H #3 tab Patient Education Materials: Urinary Tract Infection in Women (ED) Referrals: Lucia Hsu MD [Primary Care Provider] - If Needed - Billing Disposition and Condition Condition: STABLE Disposition: Home
== END 2019-02-11 12:15 | disposition home or self-care (01) ==
LOC: UCCORT 10:58
DX: N39.0 Urinary tract infection, site not specified (principal); Z88.0 Allergy status to penicillin; Z88.2 Allergy status to sulfonamides
CPT/HCPCS: 81003; 84702; 87077; 87086; 87186; 99212; G0463